=== PATIENT | male | born 1945 | race Caucasian/White ===

== ENCOUNTER → 2017-05-16 | Outpatient (CLI) | payer OTHER ==
--- NOTE | 2017-05-16 14:35 | DIAGNOSTIC IMAGING REPORT ---
BONE SCAN WHOLE BODY CLINICAL HISTORY: 72 years-old Male presenting with INCREASING PSA, HX PROSTATE CA. TECHNIQUE: Planar anterior and posterior whole body imaging was performed 3 hours following the intravenous administration of radiotracer. Radiotracer: 24.6 mCi Tc-99m MDP. COMPARISON: None. FINDINGS: Bilaterally symmetric increased activity at the acromioclavicular joints, likely degenerative in etiology. Additionally, bilaterally symmetric increased activity at the first metatarsophalangeal joints. There may also be slight increased activity at one of the mid to lower thoracic costovertebral joints, likely also degenerative. Otherwise expected distribution of radiotracer. Normal activity within the bladder and renal collecting systems. IMPRESSION: 1. No convincing evidence of focal greater tracer uptake to suggest osteoblastic metastatic disease. 2. Degenerative changes as above. Electronically signed by: David Aquino M.D. 05/16/2017 2:33 PM Dictated Date/Time: 05/16/2017 2:29 PM
== END | disposition home or self-care (01) ==
LOC: C.NUCL 10:27
PROVIDERS: ATTEND Specialist
DX: R97.20 Elevated prostate specific antigen [PSA] (principal); Z85.46 Personal history of malignant neoplasm of prostate